=== PATIENT | female | born 1970 | race Caucasian/White ===

== ENCOUNTER 2016-11-04 11:25 | Emergency (ER) | payer OTHER ==
--- NOTE | 2016-11-04 11:57 | UC ---
Throat Pain/Nasal Nader HPI - HPI Summary HPI Summary: SORE THROAT X 1 DAY , + BODY ACHES, NO FEVER, NO NASAL CONGESTION , NO COUGH - History of Current Complaint Chief Complaint: UCRespiratory Stated Complaint: THROAT Time Seen by Provider: 11/04/16 11:33 Hx Obtained From: Patient Hx Last Menstrual Period: 01/31/15 Onset/Duration: Gradual Onset, Lasting Days - 1, Still Present Severity: Moderate Cough: None Associated Signs & Symptoms: Negative: Dysphagia, FB Sensation, Drooling, Wheezing, Hoarseness, Sinus Discomfort, Nasal Discharge, Fever, Vomiting, Rash - Allergies/Home Medications Allergies/Adverse Reactions: Allergies Allergy/AdvReac Type Severity Reaction Status Date / Time Clavulanic Acid AdvReac Diarrhea Verified 11/04/16 11:42 [From Augmentin] Home Medications: Home Medications Nicotine [Nicotine Transdermal Syst] 21 mg TD DAILY 11/04/16 [History Confirmed 11/04/16] PMH/Surg Hx/FS Hx/Imm Hx Previously Healthy: Yes - Surgical History Surgical History: Yes Surgery Procedure, Year, and Place: x 1 - Family History Known Family History: Positive: None, Hypertension - Social History Alcohol Use: None Substance Use Type: None Smoking Status (MU): Light Every Day Tobacco Smoker Type: Cigarettes Amount Used/How Often: 3 cigarettes daily When Did the Patient Quit Smoking/Using Tobacco: 02/17/15 Review of Systems Constitutional: Negative Skin: Negative Eyes: Negative ENT: Sore Throat Respiratory: Negative Cardiovascular: Negative Gastrointestinal: Negative Genitourinary: Negative All Other Systems Reviewed And Are Negative: Yes Physical Exam Triage Information Reviewed: Yes Appearance: Well-Appearing, No Pain Distress, Well-Nourished Vital Signs: Initial Vital Signs Temp 98.8 F 11/04/16 11:43 Pulse 87 11/04/16 11:43 Resp 18 11/04/16 11:43 BP 142/95 11/04/16 11:43 Pulse Ox 98 11/04/16 11:43 Vital Signs Reviewed: Yes Eyes: Positive: Conjunctiva Clear ENT: Positive: Normal ENT inspection, Hearing grossly normal, Pharyngeal erythema, TMs normal. Negative: Nasal congestion, Nasal drainage Neck: Positive: Supple, Nontender, No Lymphadenopathy Respiratory: Positive: Chest non-tender, Lungs clear, Normal breath sounds Cardiovascular: Positive: RRR, No Murmur, Pulses Normal Abdominal Exam: Normal Abdomen Description: Positive: Nontender, CVA Tenderness (R), CVA Tenderness (L) Bowel Sounds: Positive: Present Skin Exam: Normal Throat Pain/Nasal Course/Dx - Differential Dx/Diagnosis Provider Diagnoses: VIRAL PHARYNGITIS Discharge - Discharge Plan Condition: Stable Disposition: HOME Patient Education Materials: Pharyngitis (ED) Referrals: Katina Bliss MD [Primary Care Provider] - If Needed
[2016-11-04 12:26] VITALS: BP 140/98
== END 2016-11-04 12:23 | disposition home or self-care (01) ==
LOC: UCCORT 11:25
DX: J02.9 Acute pharyngitis, unspecified (principal); Z88.1 Allergy status to other antibiotic agents; Z87.891 Personal history of nicotine dependence
CPT/HCPCS: 87651; 99211; G0463

== ENCOUNTER 2016-11-30 11:28 | Emergency (ER) | payer OTHER ==
[2016-11-30 11:47] VITALS: BP 144/89
--- NOTE | 2016-11-30 11:58 | UC ---
Lower Extremity/Ankle HPI - HPI Summary HPI Summary: "Pt states she twisted her left knee 11/22/16. Pt complains of left ankle feeling achey and stiff. Pt states she has chronic swelling in left leg. Pt states left leg swollen worse last night. Pt states she noticed red spots on left foot . " per national account manager note. She c/o left leg pain and swelling x 10 yrs. She is here today b/c left leg and ankle swelling that became significantly worse last night. reports chronic h/o left leg swelling x 10 yrs. She states she has seen 3 different orthopedic surgeons for this issue and even heme/onc to r/o malignancy in past. Reports neg US 1 yr ago done here through that was negative. She states that she had an MRI of left leg a few wks ago by her PCP that showed tendonitis. PCP wanted to give her a "stronger anti-inflammatory" that she would need to take a PPI with it and she declined so she is taking naproxyn instead. + HTN. Denies h/o GI bleed and ulcers and kidney disease. Also reports recent neg ankle xray. She thinks the swelling is related to her back pain and pinched nerve. Denies FHX DVT. - History of Current Complaint Chief Complaint: UCLowerExtremity Stated Complaint: LEFT LEG/ANKLE PAIN Time Seen by Provider: 11/30/16 11:55 Hx Last Menstrual Period: 01/31/15 - Allergies/Home Medications Allergies/Adverse Reactions: Allergies Allergy/AdvReac Type Severity Reaction Status Date / Time Amoxicillin [From Augmentin] Allergy Diarrhea Verified 11/30/16 11:43 Clavulanic Acid AdvReac Diarrhea Verified 11/30/16 11:43 [From Augmentin] Home Medications: Home Medications Naproxen Sodium [Naproxen Sodium 220 mg cap] 2 tab PO Q6HR PRN 11/30/16 [ History Confirmed 11/30/16] PMH/Surg Hx/FS Hx/Imm Hx Previously Healthy: Yes Other Cardiovascular History: h/o elev BP - Surgical History Surgical History: Yes Surgery Procedure, Year, and Place: x 1 - Family History Known Family History: Positive: Hypertension, Diabetes, Other - denies blood clots - Social History Alcohol Use: None Substance Use Type: None Smoking Status (MU): Heavy Every Day Tobacco Smoker Type: Cigarettes Amount Used/How Often: 1/2 pack day When Did the Patient Quit Smoking/Using Tobacco: 02/17/15 Review of Systems Constitutional: Negative Skin: Negative Eyes: Negative ENT: Negative Respiratory: Negative Cardiovascular: Negative Gastrointestinal: Negative Genitourinary: Negative Motor: Negative Neurovascular: Negative Musculoskeletal: Other: - left leg and ankle swelling and tenderness Neurological: Negative Psychological: Negative All Other Systems Reviewed And Are Negative: Yes Physical Exam Triage Information Reviewed: Yes Appearance: Well-Appearing, Well-Nourished, Other: - mild limp Vital Signs: Initial Vital Signs Temp 97.5 F 11/30/16 11:36 Pulse 80 11/30/16 11:36 Resp 18 11/30/16 11:36 BP 144/89 11/30/16 11:36 Pulse Ox 97 11/30/16 11:36 Neck exam: Normal Neck: Positive: Supple, Nontender, No Lymphadenopathy Respiratory Exam: Normal Respiratory: Positive: Lungs clear, Normal breath sounds, No respiratory distress, No accessory muscle use Cardiovascular Exam: Normal Cardiovascular: Positive: RRR, No Murmur, Pulses Normal Neurological: Positive: Other: - Left knee - tender laterally, no varus/valgus laxity. left posterior knee and posterior calf tender and with non-pitting edema. not warm to touch. Left ankle with swelling and generalized, non- specific tenderness. sensation intact to light touch. CR brisk. + 2 DP/PT b/l. Psychological Exam: Normal Skin Exam: Normal Lower Extremity Course/Dx - Course Course Of Treatment: Left leg swelling. US recommended to r/o DVT. She refuses. She understands risks of DVT, PE that are associated with risk for morbidity and mortality. She is at higher risk b/c she is a smoker and recent immobility d /t left knee pain/strain (had to use walker to ambulate). No utility of left ankle xray b/c no trauma or risk of frx and recent xray prior to MRI. Left knee xray - mild DJD, no effusion. Understands risks of NSAIDs including HTN, CKD, PUD, CAD. Left knee xray. Advised to stop smoking. - Differential Dx/Diagnosis Differential Diagnosis/HQI/PQRI: Contusion, DVT, Gout, Sprain, Strain, Tendonitis Provider Diagnoses: left knee pain, left leg and ankle swelling. Discharge - Discharge Plan Condition: Stable Disposition: AGAINST MEDICAL ADVICE Patient Education Materials: Knee Pain (ED), Leg Edema (ED) Referrals: aKtina Bliss MD [Primary Care Provider] - 1 Day Additional Instructions: xray of left knee shows no effusion, but minimal arthritis. We discussed any stronger anti-inflammatories need to be discussed with your PCP accordingly with your other medical conditions. You should ice the swelling of your left leg for 20 mins on/off with a towel barrier between your skin and the ice. You should follow up with your PCP tomorrow to discuss referral to a specialist and ongoing management. If you choose to re-consider US, you should go to the ER for further evaluation. Also if you have any chest pain or shortness of breath you should go to the ER.
--- NOTE | 2016-11-30 12:47 | RAD ---
HISTORY: Left lateral knee pain COMPARISONS: None VIEWS: 4, Frontal, lateral, axial, and oblique views of the left knee FINDINGS: BONE DENSITY: Normal. BONES: There is no displaced fracture. JOINTS: There is minimal lateral compartment osteophyte formation. There is no suprapatellar joint effusion or lipohemarthrosis. ALIGNMENT: There is no dislocation. SOFT TISSUES: Unremarkable. OTHER FINDINGS: None. IMPRESSION: MINIMAL OSTEOARTHRITIS. NO ACUTE OSSEOUS INJURY. IF SYMPTOMS PERSIST, RECOMMEND REPEAT IMAGING.
== END 2016-11-30 14:07 | disposition left against medical advice (07) ==
LOC: UCCORT 11:28
DX: M25.562 Pain in left knee (principal); M25.472 Effusion, left ankle; M79.89 Other specified soft tissue disorders; F17.210 Nicotine dependence, cigarettes, uncomplicated; Z88.0 Allergy status to penicillin
CPT/HCPCS: 99213; G0463